=== PATIENT | male | born 1970 | race Two or more races ===

== ENCOUNTER 2024-01-27 00:19 | Emergency (ER) | payer OTHER, SELFPAY ==
[2024-01-27 00:28] VITALS: BP 114/76
--- NOTE | 2024-01-27 01:10 | ED.GENMED ---
History of Present Illness
General
Chief Complaint: Heart Rate Problem
Source: patient
Exam Limitations: none
Time Seen by Provider: 01/27/24 00:53
Nursing documentation reviewed up to this point in time: agreed with
History of Present Illness
History of Present Illness:
This is a 53-year-old gentleman who has history of WPW, history of intermittent palpitations/SVT which he admits have been occurring more frequently over the past several months. He follows with cardiology in [place] where he resides and he is
scheduled for WPW ablation on Sunday, January 29.
While attending a wedding locally he admits to a few alcoholic drinks which is unlike him and while getting ready for bed he developed palpitations, feeling that he was in SVT. Generally SVT/palpitations resolved spontaneously within an hour.
Tonight's episode of palpitations seem to last a little longer prompting ED visit.
Upon arrival to the ED however palpitations resolved without return and he is feeling well.
He does admit to feeling anxious when palpitations occur but he denies chest pain, no dizziness or lightheadedness, no shortness of breath nor diaphoresis.
He denies significant caffeine use. Denies drug use.
Past History
Past History
ED Past Medical History: Arrthythmia (Fzyom-Ajxfzaafz-Zaicd-intermittent SVT), CAD and Hypercholesterolemia
ED Past Surgical History: Cardiac (PTCA with stent)
Social History
Tobacco: Non-smoker
Alcohol: Occasional
Drug: None
Personal:
Living: with family
Employment: Employed
Family History
Family History: Other (Noncontributory)
Phy Exam
Physical Exam
Physical Exam:
GENERAL: 53-year-old gentleman appears his stated age, awake and alert, pleasant, appears in no acute distress. is accompanying.
EYE: anicteric
NECK: Supple, nontender, no significant adenopathy.
ENT: oral mucosa is moist. No rhinorrhea.
CARDIAC: Regular rate and rhythm. no murmur.
LUNGS: Clear breath sounds bilaterally, no acute respiratory distress, no wheezes/rales/rhonchi
ABDOMEN: Soft, nondistended, without focal tenderness
NEUROLOGICAL: Alert and oriented x3, no focal neuro deficits. Gait is steady.
SKIN: Warm and dry, normal color, skin intact. No rash.
MUSCULOSKELETAL: No C/C/E. peripheral pulses are full and equal b/l. No palpable tenderness.
PSYCH: Normal and appropriate interaction.
Course
Orders/Labs/Results
Orders:
Orders
01/27/24 00:31
Electrocardiogram (*1) Urgent
Reason for Study: Tachycardia
EKG- Treatment ONCE
01/27/24 00:36
01/27/24 00:36
Vital Signs
Initial and Last Documented VS:
Initial Vital Signs
Temp Pulse Resp BP Pulse Ox
97.8 F 86 20 114/76 98
01/27/24 00:28 01/27/24 00:28 01/27/24 00:28 01/27/24 00:28 01/27/24 00:28
Last Documented Vital Signs
Temp Pulse Resp BP Pulse Ox
97.8 F 78 15 114/76 97
01/27/24 00:28 01/27/24 01:00 01/27/24 01:00 01/27/24 00:28 01/27/24 01:00
MDM/Problems Addressed
Differential Diagnosis Includes:
Patient with history of WPW, intermittent palpitations/SVT is scheduled for SVT ablation in 3 days time.
Presents with palpitations tonight which have since resolved since arrival to the ED. No associated symptoms and overall feeling well.
EKG shows normal sinus rhythm, typical WPW delta wave.
Monitor continues show normal sinus rhythm without ectopy.
He remains hemodynamically stable.
At this point no indication for laboratory studies. Patient is comfortable going home.
He has preop testing scheduled for tomorrow back home in [place].
Discussed importance of remaining well-hydrated, avoid further Alcoholic beverages.
Follow-up with nuclear security officer as already scheduled.
Chronic conditions affecting care: CAD and Other (WPW with history of intermittent palpitations/SVT)
*Pulse Oximetry
Patient hypoxic: no
*EKG
Interpreted by ED Provider?: Yes
Comparison EKG: no comparison EKG present
Rate: normal
Rhythm: sinus
[place]: left axis deviation
Interval: other (Delta waves consistent with WPW)
Ischemia: no ischemia
*Public Relations Senior Associate Interpretation
Rate: normal
Interpretation: normal
Rhythm: sinus
*Critical Care Note
Total Time (30-74mins, 75-104mins- exclusive of procedures): Not Applicable
ED Attending Note
-
Portions of this chart may have been created with voice recognition software.� Occasional wrong word or��sound alike� substitutions may have occurred due to the inherent limitations of voice recognition software.
Discharge Plan
Departure
Patient Disposition: Home (Routine Discharge)
Date of Disposition: 01/27/24
Time of Disposition: 01:10
Patient with high blood pressure during this ER visit?: No
Condition: Good
Discharge Problem:
Heart palpitations, Apfxc-Wqejrvndi-Tsjnp (WPW) syndrome
Instructions: Lmctj-Groygyxsg-Awpvv syndrome
Referrals:
PRIVATE,PHYSICIAN [Family Provider] - Keep scheduled appt
Interventions
Interventions:
*Risk Screen - Suicide Last Done: 01/27/24 00:28
*General Assessment Last Done: 01/27/24 01:15
*Neglect/Abuse Screening Last Done: 01/27/24 00:28
ED- Fall Risk Assessment Last Done: 01/27/24 01:15
*ED COVID-19 Vaccine History Last Done: 01/27/24 01:15
*Nursing Disposition Last Done: 01/27/24 01:15
ED- Cardiac Assessment Last Done: 01/27/24 01:11
ED- Pulmonary Assessment Last Done: 01/27/24 01:11
Discharge Date and Time
Discharge Date/Time: 01/27/24 01:16
Print Language: CAMBODIAN
== END 2024-01-27 01:16 | disposition home or self-care (01) ==
LOC: EMR 00:19
PROVIDERS: EMERGENCY PHYSICIAN Emergency Medicine
DX: R00.2 Palpitations (principal); I45.6 Pre-excitation syndrome; I25.10 Atherosclerotic heart disease of native coronary artery without angina pectoris
CPT/HCPCS: 99283; 93005